=== PATIENT | female | born 1990 | race Caucasian/White ===

== ENCOUNTER 2020-05-26 12:31 | Outpatient (CLI) | payer BC | END 2020-05-26 12:32 | disposition home or self-care (01) | LOC: CSHMRI 12:31 | PROVIDERS: ATTEND Chiropractor | DX: M84.372 Stress fracture, left ankle (principal); S86.312A Strain of muscle(s) and tendon(s) of peroneal muscle group at lower leg level, left leg, initial encounter; M89.8X7 Other specified disorders of bone, ankle and foot ==